=== PATIENT | male | born 1995 | race Caucasian/White ===

== ENCOUNTER 2017-02-22 14:09 | Emergency (ER) | payer MEDICAID ==
[~2017-02-22] VITALS: Ht 165.1 cm; Wt 85.3 kg
[2017-02-22 14:30] VITALS: Ht 165.1 cm; Wt 85.3 kg
[2017-02-22 15:53] VITALS: BP 120/53
== END 2017-02-22 15:53 | disposition home or self-care (01) ==
LOC: ED 14:09
DX: S61.512A Laceration without foreign body of left wrist, initial encounter (principal); W31.89XA Contact with other specified machinery, initial encounter; Y93.89 Activity, other specified; Y99.8 Other external cause status; Y92.89 Other specified places as the place of occurrence of the external cause
CPT/HCPCS: 90715; J2001

== ENCOUNTER 2017-03-08 10:28 | Emergency (ER) | payer MEDICAID ==
[~2017-03-08] VITALS: Ht 165.1 cm; Wt 87.1 kg
[2017-03-08 10:48] VITALS: BP 137/95; Ht 165.1 cm; Wt 87.1 kg
== END 2017-03-08 11:21 | disposition home or self-care (01) ==
LOC: ED 10:28
DX: S51.812D Laceration without foreign body of left forearm, subsequent encounter (principal); X58.XXXD Exposure to other specified factors, subsequent encounter

== ENCOUNTER 2018-08-09 13:15 | Emergency (ER) | payer SELFPAY ==
[~2018-08-09] VITALS: Ht 165.1 cm; Wt 94.3 kg
[2018-08-09 13:22] VITALS: BP 136/93; Ht 165.1 cm; Wt 94.3 kg
== END 2018-08-09 14:28 | disposition home or self-care (01) ==
LOC: ED 13:15
DX: H10.9 Unspecified conjunctivitis (principal); Z98.890 Other specified postprocedural states

== ENCOUNTER 2018-08-22 19:23 | Emergency (ER) | payer MEDICAID ==
[~2018-08-22] VITALS: Ht 165.1 cm; Wt 89.8 kg
[2018-08-22 19:25] VITALS: Ht 165.1 cm; Wt 89.8 kg
[2018-08-22 20:29] LABS: UA SPECIFIC GRAVITY >=1.030 (1.005-1.035); microscopic required? YES; urine erythrocyte NEGATIVE (NEGATIVE)
[2018-08-22 20:33] LABS: BASOPHIL % 0.5 % (0-2); PLATELET COUNT 268 x10^3mcL (130-400); RED CELL DISTRIBUTION WIDTH 12.6 % (11.5-14.5)
[2018-08-22 20:45] LABS: CALCIUM 9.3 mg/dL (8.5-10.1); CARBON DIOXIDE 27.4 mmol/L (21-32); CHLORIDE SERUM 103 mmol/L (98-107); CREATININE SERUM 0.9 mg/dL (0.7-1.3); GFR1 > 60 mL/min; GLUCOSE SERUM 94 mg/dL (74-106); POTASSIUM SERUM 3.5 mmol/L (3.5-5.1); SODIUM SERUM 140 mmol/L (136-145)
[2018-08-22 21:01] LABS: ALBUMIN 3.5 g/dL (3.4-5.0); ALKALINE PHOSPHATASE 107 U/L (46-116); ALT/SGPT 69 U/L (16-63); AST/SGOT 42 U/L (15-37); BILIRUBIN TOTAL 0.62 mg/dL (0.20-1.00); CHOLESTEROL 183 mg/dL (<200); LIPASE 103 IU/L (73-393); MAGNESIUM 2.2 mg/dL (1.8-2.4); T4(THYROXINE) 9.3 ug/dL (4.7-13.3); TOTAL PROTEIN, SERUM 7.9 g/dL (6.4-8.2)
[2018-08-22 21:02] LABS: HDL CHOLESTEROL 33 mg/dL (40-60)
[2018-08-22 22:59] LABS: AMPHETAMINE QUAL UR NONE DETECTED (See below)
[2018-08-22 23:50] VITALS: BP 120/61
== END 2018-08-22 23:50 | disposition home or self-care (01) ==
LOC: ED 19:23
PROVIDERS: Emergency Medicine
DX: R53.1 Weakness (principal); R63.4 Abnormal weight loss; R74.0 Nonspecific elevation of levels of transaminase and lactic acid dehydrogenase [LDH]; R50.9 Fever, unspecified; R11.10 Vomiting, unspecified; R34 Anuria and oliguria; Z98.890 Other specified postprocedural states
CPT/HCPCS: 82962; G0480; J7030